=== PATIENT | female | born 2005 | race Caucasian/White ===

== ENCOUNTER 2023-12-21 10:46 | Oncology outpatient (recurring) (ONCR) | payer MEDICAID, SELFPAY ==
[2023-12-21] MEDS: rho(d) immune globulin 1,500 unit Syringe 1500 UNIT IM (11:23)
== END 2024-01-13 23:59 | disposition home or self-care (01) ==
PROVIDERS: Visit Provider Family Medicine
DX: O26.893 Other specified pregnancy related conditions, third trimester (principal); Z67.91 Unspecified blood type, Rh negative
CPT/HCPCS: 96372; J2790

== ENCOUNTER 2024-03-10 21:23 | Inpatient (IN) | payer MEDICAID, SELFPAY ==
[2024-03-10] VITALS (7 sets, daily range): BP systolic 106–144; BP diastolic 62–76; PULSE 76–104; RESP 16; TEMP 36.7; BMI 29.7
[2024-03-10 21:54] LABS: Basophils % 0.2 %; Eosinophils % 0.4 %; Hematocrit 36.6 % (36-47); Lymphocytes # 2.6 10^3/uL (1.5-6.5); Lymphocytes % 25.8 %; Mean Corpuscular HGB Conc 31.4 g/dL (30-55); Mean Corpuscular Hemoglobin 24.5 pg (27-33); Mean Platelet Volume 13.2 fL (7.4-10.4); Monocytes # 0.6 10^3/uL (0.2-0.9); Monocytes % 5.9 %; Neutrophils % 66.9 %; Nucleated Red Blood Cells % 0 %; Platelet Count 167 10^3/cmm (157-399); Red Blood Count 4.69 10^6/uL (3.85-5.65); Red Cell Distribution Width 14.3 % (12.1-15.1); White Blood Count 10.02 10^3/uL (4.5-13.0)
[2024-03-10] MEDS: miSOPROStol 100 mcg tablet 25 MCG VAGINAL (22:00)
[2024-03-11] VITALS (44 sets, daily range): BP systolic 94–150; BP diastolic 54–85; PULSE 65–203; RESP 14–16; TEMP 36.5–36.8; O2SAT 98–100; BMI 29.7
[2024-03-11 01:12] LABS: Amphetamines Screen Urine Negative (Negative); Barbiturates Screen Urine Negative (Negative); Benzodiazepines Screen Urine Negative (Negative); Cocaine Screen Urine Negative (Negative); Opiate Screen Urine Negative (Negative); PCP Screen Urine Negative (Negative); THC Screen Urine Negative (Negative)
[2024-03-11] MEDS: lactated ringers 1,000 ML 999 ML IV ×2 (02:30→03:29)
[2024-03-11] MEDS: fentaNYL 50 mcg/mL INJ 2mL IVP (03:09)
[2024-03-11] MEDS: ROPivacaine syringe 100 MG/50 ML SYRINGE 10 MG EPIDURAL (03:46)
--- NOTE | 2024-03-11 03:49 | P.ANESASSM_ITS ---
Pre-Anesthetic Assessment Height/Weight: Height 1.63 m Weight 78.471 kg Temp Pulse Resp BP Pulse Ox O2 Del Method 98.0 F 100 16 133/57 100 Room Air 03/10/24 21:44 03/11/24 03:45 03/11/24 03:09 03/11/24 03:45 03/11/24 03:38 03/10/24 21:19 Preop Diagnosis: Active Labor Labor Epidural Familial anesthetic complications: None Last intake: 0200 snack 03/11/24 clears currently Social Tobacco (vapes) Exam alert, oriented x 3 and clear to auscultation bilaterally Airway Submandibular: within normal limits Cervical ROM: within normal limits Mallampati: Class II Dentition: full History/ROS No significant history except as noted Pulmonary Asthma CV/HEM None reported None reported Hepatic None reported GI None reported Metabolic None reported Musc/skel None reported Neuropsych None reported Anesthetic Plan ASA status: 2 Anesthesia: Regional (specify below) Other: Labor Epidural Medications/Allergies Home Medications Medication Instructions Recorded Confirmed Last Taken Type No Known Home Medications 10/02/20 10/02/20 Unknown History prenat.vits,jessika,fuu-ygew-qugfz 1 tab PO DAILY #90 tabs 10/02/20 10/02/20 Unknown Rx Allergies Allergy/AdvReac Type Severity Reaction Status Date / Time No Known Allergies Allergy Verified 10/02/20 12:50 Current Medications Generic Name Dose Route Start Last Admin Trade Name Freq PRN Reason Stop Dose Admin Fentanyl 25 - 100 mcg 03/10/24 21:09 03/11/24 03:09 Fentanyl 50 Mcg/Ml Inj 2ml IVP 25 mcg Q1H PRN Administration SEVERE PAIN Lactated Ringer's 1,000 mls @ 999 mls/hr 03/11/24 02:24 03/11/24 03:29 Lactated Ringers IV 999 mls/hr .Q1H1M PRN Administration See label comments Ropivacaine 100 mg in 50 mls @ 10 mls/hr 03/11/24 02:30 03/11/24 03:46 Naropin Syringe EPIDURAL 10 mls/hr .Q5H CHARLENE Administration PFSH Anesthesia Social History (Updated 10/02/20 @ 12:52 by Edwina Macario LPN) Smoking and tobacco/nicotine status: current every day tobacco/nicotine user cigarettes Quit status (tobacco/nicotine): has tried quititng Alcohol intake: never Substance/Drug Use: never Female Reproductive History : 2 Para: 0 Spontaneous abortions: No Data Anesthesia 03/10/24 21:28 Short CBC 03/10/24 Range/Units 21:28 WBC 10.02 (4.5-13.0) 10^3/uL Hgb 11.50 L (12.4-14.8) g/dL Hct 36.6 (36-47) % MCV 78.0 L (85-98) fl Plt Count 167 (157-399) 10^3/cmm Neut % (Auto) 66.9 % Neut # (Auto) 6.70 (1.8-8.0) 10^3/uL Blood Bank 03/10/24 21:28 Blood Type O Negative Rho(D) Type Rh negative Antibody Screen Negative Cardiac Studies: 2 No Data to Display Anesthesia Procedures Epidural Time Out Performed: Yes Consent: from patient, risks and benefits reviewed and patient agrees to proceed Lumbar Level: L3-L4 Epidural position: sitting Epidural procedure: sterile prep of area, 1% lidocaine to numb the area, negative for paresthesia passed, test dose given, 1.5% xylocaine 1:200k epi, placed PCEA, no systemic response, sterile dressing applied, L.U.D. no apparent complications and 0.2% Ropiavacaine @ mls/hr (10) Additional Comments: LUIS FERNANDO @ 4.5cm on second attempt catheter threaded to 10cm, test dose negative remaining lidocaine and saline within kit given, patient reports relief in contractions
[2024-03-11] MEDS: ondansetron 2 mg/ML SDV 2 mL 4 MG IVP (06:10)
[2024-03-11] MEDS: dextrose 5%-lactated ringers 1,000 ML 125 ML IV (06:13)
[2024-03-11] MEDS: oxytocin 30 UNIT/500 ML BAG 600 UNIT IV (06:40)
--- NOTE | 2024-03-11 06:51 | PM.OPHPUD ---
Labor & Delivery H&P Update Date of Procedure: March 11, 2024 Date H&P Performed: 03/04/24 Changes to previous documentation: No significant changes at the time of admission Admission Diagnosis: 18-year-old 2 para 1-0-0-1 at 41 weeks estimated gestational age presenting for induction due to postdates Preop diagnosis: Active Labor Planned procedure: Vaginal delivery Other information: The patient is a healthy 18-year-old female who had an unremarkable . She presented for induction due to pos dates. We discussed the risks and benefits of induction in my office. The patient had no further questions or wished wished to proceed. Her labs were unremarkable. Her blood type is O-. Her antibody screen was negative. She was positive for THC. She was rubella immune. She passed her glucose screen. The remainder of her infectious disease profile was within normal limits. Related Problem List Diagnoses (1) 41 weeks gestation of : A&P Assessment and plan (1) 41 weeks gestation of : The patient's labor was induced using Cytotec 25 mcg x 1. Status: Acute
--- NOTE | 2024-03-11 06:56 | PM.DELIVERY ---
Delivery Note: Date of delivery: March 11, 2024 Pre-delivery diagnoses: 18-year-old 2 para 1-0-0-1 at 41 weeks estimated gestational age Post-delivery diagnoses: Status post spontaneous vaginal delivery Procedure: Spontaneous vaginal delivery Pre-Delivery Course: The patient presented to the hospital for induction due to postdates. Cytotec 25 mcg x 1 was placed per vagina. No further augmentation was required. She had spontaneous rupture of membranes 4 to 5 hours prior to delivery. She then progressed to complete without difficulty. Delivery: DELIVERY: The patient progressed to complete without difficulty. She delivered a male with a weight of 8 pounds 5 ounces with Apgars of 8, 9. The baby was delivered from the HENRY position. The baby's mouth and nose were suctioned at the site of the perineum. The baby was then completely delivered and placed on the mother's abdomen. The cord was then clamped and cut. There was a nuchal cord x 1. The baby was delivered through the cord without difficulty. There was no meconium. The placenta and 3 vessel cord were delivered intact shortly thereafter. The perineum and vaginal vault were carefully examined. No lacerations were noted. Both the mother and the baby were in stable condition. Post-Delivery Status: Good History History History 2 Term 1 Miscarriages/Ectopic Living Children 1 A&P Assessment and plan (1) 41 weeks gestation of : (2) Spontaneous vaginal delivery: I anticipate routine care. Coding Level of Care Code Acute Code for Chg Fwd Diagnoses 41 weeks gestation of O48.0; Z3A.41 Spontaneous vaginal delivery O80
[2024-03-11] MEDS: ibuprofen 800 mg tablet PO ×3 (10:35→20:47)
[2024-03-11] MEDS: PRENATAL VIT NO.130/IRON/FOLIC 1 EACH TABLET PO (10:35)
[2024-03-11] MEDS: docusate sodium 100 mg Capsule PO ×2 (10:35→19:08)
[2024-03-11 19:28] LABS: Hematocrit 30.1 % (36-47); Mean Corpuscular HGB Conc 31.9 g/dL (30-55); Mean Corpuscular Hemoglobin 25.5 pg (27-33); Mean Corpuscular Volume 79.8 fl (85-98); Mean Platelet Volume 12.9 fL (7.4-10.4); Platelet Count 142 10^3/cmm (157-399); Red Blood Count 3.77 10^6/uL (3.85-5.65); Red Cell Distribution Width 14.3 % (12.1-15.1); White Blood Count 9.47 10^3/uL (4.5-13.0)
[2024-03-12 04:30] VITALS: BP 129/73; PULSE 72; RESP 14; TEMP 36.6; O2SAT 97
--- NOTE | 2024-03-12 04:54 | PM.OBGYDC ---
Discharge Providers TRAFFIC LAW ATTORNEY Date of Admission: 03/10/24 21:23 Date of Discharge: 03/12/24 Attending Provider at Admission: Garcia Ly MD Attending Provider at Discharge: Garcia Ly MD Diagnoses at Discharge Discharge Diagnosis (1) 41 weeks gestation of : Status: Acute (2) Spontaneous vaginal delivery: Status: Acute Reason for Visit Reason for Visit: induction of labor Hospital Course Hospital Course The patient presented to the hospital for induction due to postdates. She was placed on Cytotec 25 mcg x 1 per vagina. She had spontaneous rupture membranes. An epidural was placed. She progressed to complete without difficulty. She had an unremarkable delivery of a healthy male infant. Her course was also unremarkable. She has breast-fed well. Her bleeding has been within normal limits. Her pain has been well-controlled. There have been no concerns. Information Peripartum Data: Infant Delivery Method: Vaginal Physical Exam Narrative: The patient is alert. She appears comfortable. Her heart has a regular rate and rhythm with no murmurs appreciated. Lungs are clear to auscultation bilaterally. Her fundus is firm and below the umbilicus. Urinary Catheter Management: Malik: Cath Placed During This Visit: yes, but has since been removed by the nurse Reason for Continuing Indwelling Catheter: Decision to DC Catheter Urinary Catheter Date of Insertion: 03/11/24 Urinary Catheter Time of Insertion: 04:14 Date Urinary Catheter Removed: 03/11/24 Time Urinary Catheter Discontinued: 06:20 History History History 2 Term 1 Miscarriages/Ectopic Living Children 1 Discharge Data Studies Completed and Pending Pending at discharge Category Date Time Status Complete Crossmatch Routine Lab 03/10/24 21:28 Results Rho D Immune Globulin Routine Lab 03/10/24 21:28 Results Type and Screen Routine Lab 03/10/24 21:28 Results Laboratory Results WBC 9.47 10^3/uL (4.5-13.0) 03/11/24 19:18 RBC 3.77 10^6/uL (3.85-5.65) L 03/11/24 19:18 Hgb 9.60 g/dL (12.4-14.8) L 03/11/24 19:18 Hct 30.1 % (36-47) L 03/11/24 19:18 MCV 79.8 fl (85-98) L 03/11/24 19:18 MCH 25.5 pg (27-33) L 03/11/24 19:18 MCHC 31.9 g/dL (30-55) 03/11/24 19:18 RDW 14.3 % (12.1-15.1) 03/11/24 19:18 Plt Count 142 10^3/cmm (157-399) L 03/11/24 19:18 MPV 12.9 fL (7.4-10.4) H 03/11/24 19:18 Neut % (Auto) 66.9 % 03/10/24 21:28 Lymph % (Auto) 25.8 % 03/10/24 21:28 Shoshone % (Auto) 5.9 % 03/10/24 21: Eos % (Auto) 0.4 % 03/10/24 21: Baso % (Auto) 0.2 % 03/10/24 21: Neut # (Auto) 6.70 10^3/uL (1.8-8.0) 03/10/24 21:28 Lymph # (Auto) 2.6 10^3/uL (1.5-6.5) 03/10/24 21:28 Shoshone # (Auto) 0.6 10^3/uL (0.2-0.9) 03/10/24 21:28 Eos # (Auto) 0.0 10^3/uL (0.0-0.8) 03/10/24 21:28 Baso # (Auto) 0.0 10^3/uL (0.0-0.1) 03/10/24 21:28 Nucleated RBC % (auto) 0 % 03/10/24 21: Nucleated RBCs # 0.0 /100WBC 03/10/24 21:28 Urine Opiates Screen Negative ng/mL (Negative) 03/11/24 00:03 Ur Barbiturates Screen Negative ng/mL (Negative) 03/11/24 00:03 Ur Phencyclidine Scrn Negative ng/mL (Negative) 03/11/24 00:03 Ur Amphetamines Screen Negative ng/mL (Negative) 03/11/24 00:03 U Benzodiazepines Scrn Negative ng/mL (Negative) 03/11/24 00:03 Urine Cocaine Screen Negative ng/mL (Negative) 03/11/24 00:03 U Marijuana (THC) Screen Negative ng/mL (Negative) 03/11/24 00:03 Blood Type O Negative 03/10/24 21:28 Rho(D) Type Rh negative 03/10/24 21:28 Antibody Screen Negative 03/10/24 21:28 Screen Negative (Negative) 03/11/24 19:18 Vitals Last Vital Signs Temp 97.7 F 03/11/24 16:00 Pulse 69 03/11/24 16:00 Resp 16 03/11/24 16:00 BP 115/67 03/11/24 16:00 Pulse Ox 98 03/11/24 16:00 O2 Del Method Room Air 03/11/24 16:00 Results Labs OB ([facility]): Blood Type O Negative 03/10/24 Antibody Screen Negative 03/10/24 Hct 30.1 % (36-47) L 03/11/24 Hgb 9.60 g/dL (12.4-14.8) L 03/11/24 Rho(D) Type Rh negative 03/10/24 Plt Count 142 10^3/cmm (157-399) L 03/11/24 Urine Opiates Screen Negative ng/mL (Negative) 03/11/24 Ur Barbiturates Screen Negative ng/mL (Negative) 03/11/24 Ur Phencyclidine Scrn Negative ng/mL (Negative) 03/11/24 Ur Amphetamines Screen Negative ng/mL (Negative) 03/11/24 U Benzodiazepines Scrn Negative ng/mL (Negative) 03/11/24 Urine Cocaine Screen Negative ng/mL (Negative) 03/11/24 U Marijuana (THC) Screen Negative ng/mL (Negative) 03/11/24 Discharge Plan Discharge Patient Disposition: Home Condition: Stable Prescriptions: New ibuprofen 800 mg Tablet 800 mg PO TID Qty: 45 0RF Continued prenat.vits,jessika,qdv-rdat-xydhc Tablet 1 tab PO DAILY Qty: 90 2RF Rx Instructions: have with food Discharge Orders: Discharge Order (Routine); Ordered 03/12/24 Ordered By: Garcia Ly Referrals: Garcia Ly MD [Physician] - 6 Weeks Discharge Diet: Usual diet Discharge Activity: Limit activity as instructed Patient Instructions: Opioid Safety Discharge Attestations TRAFFIC LAW ATTORNEY Time Spent in Discharge Care*: less than 30 min Coding Level of Care Code Acute Code for Chg Fwd Diagnoses 41 weeks gestation of O48.0; Z3A.41 Spontaneous vaginal delivery O80
[2024-03-12] MEDS: docusate sodium 100 mg Capsule PO (08:20)
[2024-03-12] MEDS: PRENATAL VIT NO.130/IRON/FOLIC 1 EACH TABLET PO (08:20)
[2024-03-12] MEDS: ibuprofen 800 mg tablet PO (08:20)
[2024-03-12 10:00] VITALS: BP 104/64; PULSE 60; RESP 16; TEMP 36.6; O2SAT 99
[2024-03-12 12:16] VITALS: PULSE 60; RESP 16; TEMP 36.5
[2024-03-12 13:42] VITALS: PULSE 60; RESP 16; TEMP 36.5
== END 2024-03-12 13:43 | disposition home or self-care (01) | DRG 806 ==
LOC: OPOB 21:23 → OBGYN 21:23
PROVIDERS: Admitting Provider Family Medicine; Visit Provider Family Medicine
DX: O48.0 Post-term pregnancy (principal); O99.324 Drug use complicating childbirth; Z37.0 Single live birth; Z3A.41 41 weeks gestation of pregnancy; O99.333 Smoking (tobacco) complicating pregnancy, third trimester; F17.210 Nicotine dependence, cigarettes, uncomplicated; F12.90 Cannabis use, unspecified, uncomplicated
CPT/HCPCS: 36415; 36430; 51702; 59025; 59409; 80306; 85025; 85027; 85460; 86850; 86900; 90384; 90471; 96374; 98960; 99211; J2405; J2590; J2795; J3010; J7120; J7121

== ENCOUNTER 2025-03-04 16:20 | Inpatient (IN) | payer MEDICAID, SELFPAY ==
[2025-03-04] VITALS (11 sets, daily range): BP systolic 93–128; BP diastolic 50–77; PULSE 68–97; RESP 15; BMI 27.3
[2025-03-04 19:13] LABS: Nitrazine Paper, PH Negative
[2025-03-04 19:24] LABS: PCP Screen Urine Negative (Negative)
--- NOTE | 2025-03-04 23:59 | ANES.PREANE2 ---
Pre-Anesthetic Assessment Height/Weight: Height 1.63 m Weight 72.348 kg Pulse Resp BP O2 Del Method 76 15 115/62 Room Air 03/04/25 23:39 03/04/25 18:02 03/04/25 23:39 03/04/25 18:22 Epidural Familial anesthetic complications: None Was Beta Vega taken within 24 hours: N/A Was Clonidine taken within 24 hours: N/A Last intake: 0 food Social Alcohol (When not socially) and Tobacco 6-7 cigg a day, vapes, denies marijuana pack(s) per day Exam alert, oriented x 3, clear to auscultation bilaterally and regular rate & rhythm Airway Submandibular: within normal limits Cervical ROM: within normal limits Mallampati: Class II Dentition: chipped (Top right) and full History/ROS No significant history except as noted and No significant complaints Pulmonary Asthma CV/HEM Anemia None reported Hepatic None reported GI Gastroesophageal Reflux Disease (During ) Metabolic Hypoglycemia Musc/skel Osteoarthritis/DJD Neuropsych Anxiety, Depression and Neuropathy Anesthetic Plan ASA status: 2 Anesthesia: Anesthesia Evaluation, General and Regional (specify below) (Epidural) Risk of > 500 ml blood loss (7ml/kg in children): Yes, adequate IV access and fluids planned Medications/Allergies Home Medications ?Medication ?Instructions ?Recorded ?Confirmed ?Last Taken ?Type prenat.vits,jessika,ssr-bono-angah 1 tab PO DAILY #90 tabs 10/02/20 03/11/24 03/09/24 Rx ibuprofen 800 mg tablet 800 mg PO TID #45 tabs 03/12/24 Unknown Rx Allergies Allergy/AdvReac Type Severity Reaction Status Date / Time No Known Allergies Allergy Verified 10/02/20 12:50 [facility] Anesthesia Social History (Updated 10/02/20 @ 12:52 by Edwina Macario LPN) Smoking and tobacco/nicotine status: current every day tobacco/nicotine user cigarettes Quit status (tobacco/nicotine): has tried quititng Alcohol intake: never Substance/Drug Use: never Female Reproductive History : 3 Para: 0 Spontaneous abortions: No Data Anesthesia 03/04/25 18:10
[2025-03-05] VITALS (12 sets, daily range): BP systolic 103–123; BP diastolic 62–84; PULSE 56–88; RESP 15–17; TEMP 36.4–36.6; O2SAT 96–98
[2025-03-05 00:05] LABS: Hematocrit 33.8 % (36-47); Hemoglobin 10.30 g/dL (11.27-16.99); Mean Corpuscular HGB Conc 30.5 g/dL (30-55); Mean Corpuscular Hemoglobin 23.8 pg (27-33); Mean Corpuscular Volume 78.2 fl (85-98); Nucleated Red Blood Cells % 0 %; Platelet Count 158 10^3/cmm (157-399); Red Blood Count 4.32 10^6/uL (3.85-5.65); White Blood Count 7.62 10^3/uL (3.29-11.43)
[2025-03-05] MEDS: oxytocin 30 UNIT/500 ML BAG 600 UNIT IV (01:39)
--- NOTE | 2025-03-05 01:47 | PM.OBGYHP ---
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 She presented to the hospital in active labor. Apparently she received care from a midlevel provider who does not have arrangements with any provider for delivery in the hospital. When she began having contractions, she made the decision to proceed to this hospital for delivery. When she arrived, her membranes were intact. She was having intermittent contractions. She was making cervical change. As result she was admitted. Present Details : 3 Para: 2 Labs Rubella: Immune RPR: Negative GBS: Negative Review of Systems General: Reports: 10 or more systems reviewed and unremarkable except in HPI and below Const: Reports: fatigue; Denies: fever(s) Eyes: Denies: change in vision Card: Denies: chest pain Musc: Reports: back pain Madhu/Lymph: Denies: easy bruising Medications/Allergies Home Medications ?Medication ?Instructions ?Recorded ?Confirmed ?Last Taken ?Type prenat.vits,jessika,nqy-xjro-clctg 1 tab PO DAILY #90 tabs 10/02/20 03/11/24 03/09/24 Rx ibuprofen 800 mg tablet 800 mg PO TID #45 tabs 03/12/24 Unknown Rx Allergies Allergy/AdvReac Type Severity Reaction Status Date / Time No Known Allergies Allergy Verified 10/02/20 12:50 PFSH HYDRAULICS ENGINEER PFSH: Social History Smoking and tobacco/nicotine status: current every day tobacco/nicotine user cigarettes Quit status (tobacco/nicotine): has tried quititng Alcohol intake: never Substance/Drug Use: never History History History 3 Term 2 Miscarriages/Ectopic Living Children 2 Vitals/I&O/Wt Last Vital Signs Pulse 76 03/04/25 23:39 Resp 15 03/04/25 18:02 BP 115/62 03/04/25 23:39 O2 Del Method Room Air 03/04/25 18:22 Weight last 48 hrs Weight 159 lb 8 oz Physical Exam Const: COMMON NORMALS: patient oriented x3 and alert HENMT: COMMON NORMALS: moist oral mucous membranes HEAD & SCALP: normal to inspection Chest: COMMONS NORMALS: normal inspection of the chest Resp: COMMON NORMALS: clear to auscultation bilaterally AUSCULTATION: clear to auscultation bilaterally Cardio: COMMON NORMALS: regular rate and regular rhythm RATE: regular rate RHYTHM: regular rhythm GI: INSPECTION: Yes normal to inspection and Yes other (Gravid) Extremity: COMMON NORMALS: normal to inspection GENERAL: Yes edema (Trace) Neuro: COMMON NORMALS: patient oriented x3, moves all extremities and no sensory deficits noted SENSORIUM/ORIENTATION: Yes alert Psych: COMMON NORMALS: mental status grossly normal Skin: COMMON NORMALS: no rashes or lesions noted GENERAL SKIN EXAM: no rashes or lesions noted Data 03/04/25 18:10 Other data: The patient had her labs performed on 29 January. She was GBS negative. Her metabolic screen was within normal limits. She is hepatitis C negative. HIV negative. Rubella immune. Hepatitis B negative. RPR negative. Her blood type is O-. Her antibody screen is negative. Chlamydia and gonorrhea and trichomonas were all negative. Results Labs OB ([facility]): Blood Type O Negative 03/10/24 Antibody Screen Negative 03/10/24 Hct, (36-47) 33.8 % L 03/04/25 Hgb, (11.27-16.99) 10.30 g/dL L 03/04/25 Rho(D) Type Rh negative 03/10/24 Plt Count, (157-399) 158 10^3/cmm 03/04/25 Urine Opiates Screen, (Negative) Negative ng/mL 03/04/25 Ur Barbiturates Screen, (Negative) Negative ng/mL 03/04/25 Ur Phencyclidine Scrn, (Negative) Negative ng/mL 03/04/25 Ur Amphetamines Screen, (Negative) Negative ng/mL 03/04/25 U Benzodiazepines Scrn, (Negative) Negative ng/mL 03/04/25 Urine Cocaine Screen, (Negative) Negative ng/mL 03/04/25 U Marijuana (THC) Screen, (Negative) Positive ng/mL H 03/04/25 A&P Assessment and plan 1. 39 weeks gestation of : Routine labor and delivery anticipated. 2. Late care affecting : PDMP PDMP Reviewed: Not Reviewed Attestations Medical Necessity Statement*: I anticipate routine labor and postdelivery care. Coding Level of Care Code Acute Code for Chg Fwd Diagnoses 39 weeks gestation of Z3A.39 Late care affecting O09.30
--- NOTE | 2025-03-05 01:53 | PM.DELIVERY ---
Delivery Note: Date of delivery: March 05, 2025 Pre-delivery diagnoses: 19-year-old 3 para 2-0-0-2 at 39 weeks estimated gestational age based on a 34-week ultrasound. Post-delivery diagnoses: Status post spontaneous vaginal delivery Procedure: Spontaneous vaginal delivery Estimated blood loss (mL): 150 Pre-Delivery Course: The patient presented to the hospital in active labor. Her membranes were intact. She made gradual change. She then quickly progressed to complete. I was contacted by phone when she was 8 to 9 cm. Her membranes ruptured just prior to delivery. Delivery: DELIVERY: The patient progressed to complete without difficulty. She delivered a female with a weight of 7 pounds 15 ounces with Apgars of 9, 9. The baby was delivered from the vertex position. The baby was placed on the mother's abdomen. The cord was then clamped and cut several minutes after delivery. There was no nuchal cord. There was no meconium. The placenta and 3 vessel cord were delivered intact shortly thereafter. The perineum and vaginal vault were carefully examined. No lacerations were noted. Both the mother and the baby were in stable condition. Post-Delivery Status: Good History History History 3 Term 2 Miscarriages/Ectopic Living Children 2 A&P Assessment and plan 1. Vaginal delivery: I anticipate routine care. PDMP PDMP Reviewed: Not Reviewed Coding Level of Care Code Acute Code for Chg Fwd Diagnoses Vaginal delivery O80
--- NOTE | 2025-03-05 06:06 | PC.NURSE ---
0105- this RN performed SVE after patient informed this nurse she was beginning to hurt more and requesting epidural, SVE 6.5cm, 95%, -2 0116- this RN performed SVE after patient informed this nurse she was beginning to fell contractions very strong compared to before and patient demeanor changed and began making grunting sounds with contractions and was not handling pain well. SVE of 8.5cm, 95%, -2. 0125- This RN at bedside and patient patient stating, these contractions hurt so bad, i need to get him out. can I push? This RN explained to patient that we would have to wait for MD to arrive and coached patient on breathing techniques to prevent pushing, also educated patient on the importance of not pushing when cervix is still present so that the cervix does not tear. Patient verbalized understanding and performed breathing as this RN coached her. This RN at bedside continuously from this point until after delivery. 0127- This RN at bedside coaching patient and talking patient through contractions, patient involuntarily pushing, membranes presenting out of vaginal vault, and this RN told Zonia Amaro RN to call MD to let him know patient . Small to moderate crown noted at this time. This RN ready at bedside for assistance in delivery if needed. 0128- head delivered at this time, this RN felt for nuchal cord, once note noted this RN instructed patient to push, body delivered and supported by this RN, infant placed on maternal chest/abdomen and stimulated on chest. Baby vitals appropriate and color of baby appropriate as well. Baby kept on mom and dried/stimulated. 0135- MD at bedside 0139- placenta delivered by MD, cord clamped before delivery of placenta and cut by father of infant after deliver of placenta 9/9 apgars
[2025-03-05] MEDS: HYDROcodone-acetaminophen 5-325 mg Tablet PO (06:18)
--- NOTE | 2025-03-05 06:32 | PC.NURSE ---
Patient hotlined for THC+ and limited care, patient informed this RN and MD she didn't think she was until she was visibly large in her abdomen.
[2025-03-05] MEDS: PRENATAL VIT NO.130/IRON/FOLIC 1 EACH TABLET PO (10:25)
--- NOTE | 2025-03-05 15:19 | PM.OBGYDC ---
Discharge Providers [employer] Date of Admission: 03/04/25 16:20 Date of Discharge: 03/05/25 Attending Provider at Admission: Garcia Ly MD Attending Provider at Discharge: Garcia Ly MD Diagnoses at Discharge Discharge Diagnosis 1. 39 weeks gestation of : 2. Late care affecting : Reason for Visit Reason for Visit: ctx Hospital Course Hospital Course The patient presented to the hospital with concern about spontaneous rupture of membranes and occasional contractions. When she was checked her vaginal vault was dry, and she was noted to be nitrazine negative. Regardless she continued to make cervical change. Initially, her cervical change was slow. Then she quickly changed from 5 cm to complete. Her membranes ruptured a few minutes prior to delivery. She had an unremarkable precipitous vaginal delivery. Her course was also unremarkable. She breast-fed well. Her bleeding was within normal limits. There were no concerns. Information Peripartum Data: Infant Delivery Method: Vaginal Physical Exam Narrative: The patient is alert. She appears comfortable. Her heart has a regular rate and rhythm with no murmurs appreciated. Lungs are clear to auscultation bilaterally. Her fundus is firm and below the umbilicus. History History History 3 Term 2 Miscarriages/Ectopic Living Children 2 Discharge Data Studies Completed and Pending Pending at discharge Category Date Time Status Hemagram Timed Lab 03/05/25 14:50 Received Laboratory Results WBC 7.62 10^3/uL (3.29-11.43) 03/04/25 18:10 RBC 4.32 10^6/uL (3.85-5.65) 03/04/25 18:10 Hgb 10.30 g/dL (11.27-16.99) L 03/04/25 18:10 Hct 33.8 % (36-47) L 03/04/25 18:10 MCV 78.2 fl (85-98) L 03/04/25 18:10 MCH 23.8 pg (27-33) L 03/04/25 18:10 MCHC 30.5 g/dL (30-55) 03/04/25 18:10 RDW 20.4 % (12.1-15.1) H 03/04/25 18:10 Plt Count 158 10^3/cmm (157-399) 03/04/25 18:10 MPV TNP 03/04/25 18:10 Neut % (Auto) 66.6 % 03/04/25 18:10 Lymph % (Auto) 25.3 % 03/04/25 18:10 Dukes % (Auto) 7.0 % 03/04/25 18:10 Eos % (Auto) 0.5 % 03/04/25 18:10 Baso % (Auto) 0.1 % 03/04/25 18:10 Neut # (Auto) 5.07 10^3/uL (1.8-7.7) 03/04/25 18:10 Lymph # (Auto) 1.9 10^3/uL (0.8-4.8) 03/04/25 18:10 Dukes # (Auto) 0.5 10^3/uL (0.2-0.9) 03/04/25 18:10 Eos # (Auto) 0.0 10^3/uL (0.0-0.8) 03/04/25 18:10 Baso # (Auto) 0.0 10^3/uL (0.0-0.1) 03/04/25 18:10 Nucleated RBC % (auto) 0 % 03/04/25 18:10 Nucleated RBCs # 0.0 /100WBC 03/04/25 18:10 Fluid pH (paper) Negative 03/04/25 18:01 Urine Opiates Screen Negative ng/mL (Negative) 03/04/25 19:07 Ur Barbiturates Screen Negative ng/mL (Negative) 03/04/25 19:07 Ur Phencyclidine Scrn Negative ng/mL (Negative) 03/04/25 19:07 Ur Amphetamines Screen Negative ng/mL (Negative) 03/04/25 19:07 U Benzodiazepines Scrn Negative ng/mL (Negative) 03/04/25 19:07 Urine Cocaine Screen Negative ng/mL (Negative) 03/04/25 19:07 U Marijuana (THC) Screen Positive ng/mL (Negative) H 03/04/25 19:07 Blood Type O Negative 03/04/25 18:10 Rho(D) Type Rh negative 03/04/25 18:10 Antibody Screen Positive 03/04/25 18:10 Antibody Identification Anti-D 03/04/25 18:10 Vitals Last Vital Signs Temp 97.7 F 03/05/25 11:45 Pulse 80 03/05/25 11:45 Resp 16 03/05/25 11:45 BP 122/78 03/05/25 11:45 Pulse Ox 98 03/05/25 11:45 O2 Del Method Room Air 03/05/25 11:45 Results Labs OB ([facility]): Blood Type O Negative 03/04/25 Antibody Screen Positive 03/04/25 Hct, (36-47) 33.8 % L 03/04/25 Hgb, (11.27-16.99) 10.30 g/dL L 03/04/25 Rho(D) Type Rh negative 03/04/25 Plt Count, (157-399) 158 10^3/cmm 03/04/25 Urine Opiates Screen, (Negative) Negative ng/mL 03/04/25 Ur Barbiturates Screen, (Negative) Negative ng/mL 03/04/25 Ur Phencyclidine Scrn, (Negative) Negative ng/mL 03/04/25 Ur Amphetamines Screen, (Negative) Negative ng/mL 03/04/25 U Benzodiazepines Scrn, (Negative) Negative ng/mL 03/04/25 Urine Cocaine Screen, (Negative) Negative ng/mL 03/04/25 U Marijuana (THC) Screen, (Negative) Positive ng/mL H 03/04/25 Discharge Plan Discharge Patient Disposition: Home Condition: Stable Prescriptions: New ibuprofen 800 mg Tablet 800 mg PO TID Qty: 45 0RF Continued prenat.vits,jessika,[id number] Tablet 1 tab PO DAILY Qty: 90 2RF Rx Instructions: have with food Discontinued ibuprofen 800 mg Tablet 800 mg PO TID Qty: 45 0RF Discharge Order = DC NOW: Discharge Order (Routine); Ordered 03/05/25 Ordered By: Garcia Ly Discharge Diet: Usual diet Discharge Activity: Limit activity as instructed Patient Instructions: Opioid Safety, Patient Portal & Pablo Instructions Activity Restrictions/Additional Instructions: The patient has already set up an appointment with the provider she had been seen during her to see her back in 2 weeks. The provider currently is in [place]. Discharge Attestations [employer] Time Spent in Discharge Care*: less than 30 min Coding Level of Care Code Acute Code for Chg Fwd Diagnoses 39 weeks gestation of Z3A.39 Late care affecting O09.30
[2025-03-05 15:24] LABS: Hematocrit 31.2 % (36-47); Hemoglobin 9.70 g/dL (11.27-16.99); Mean Corpuscular HGB Conc 31.1 g/dL (30-55); Mean Corpuscular Hemoglobin 24.1 pg (27-33); Mean Corpuscular Volume 77.4 fl (85-98); Platelet Count 141 10^3/cmm (157-399); Red Blood Count 4.03 10^6/uL (3.85-5.65); White Blood Count 8.34 10^3/uL (3.29-11.43)
--- NOTE | 2025-03-05 22:03 | PC.NURSE ---
0674 Patient given discharge education. Patient denies questions. Patient staying as visitor in the hospital with daughter.
== END 2025-03-05 21:40 | disposition home or self-care (01) | DRG 807 ==
LOC: OBGYN 22:17
PROVIDERS: Absent Provider Family Medicine; Admitting Provider Family Medicine; Visit Provider Family Medicine
DX: O99.334 Smoking (tobacco) complicating childbirth (principal); Z37.0 Single live birth; F17.210 Nicotine dependence, cigarettes, uncomplicated; Z3A.39 39 weeks gestation of pregnancy
CPT/HCPCS: 59025; 59409; 80306; 80503; 83986; 85025; 85027; 86850; 86870; 86900; 99211; J2590; J7030; J9999